=== PATIENT | female | born 1940 | race Caucasian/White ===

== ENCOUNTER → 2023-02-06 13:48 | Outpatient (BNVA) | payer MEDICARE, BC, SELFPAY | PROVIDERS: PCP Family Medicine; Referring Provider Family Medicine; Visit Provider Student in an Organized Health Care Education/Training Program | DX: J45.50 Severe persistent asthma, uncomplicated (principal); Z79.51 Long term (current) use of inhaled steroids; R91.8 Other nonspecific abnormal finding of lung field; J98.4 Other disorders of lung | CPT/HCPCS: 99214 ==

== ENCOUNTER → 2023-08-08 14:19 | Outpatient (BNVA) | payer MEDICARE, BC, SELFPAY | PROVIDERS: PCP Family Medicine; Referring Provider Family Medicine; Visit Provider Student in an Organized Health Care Education/Training Program | DX: R91.8 Other nonspecific abnormal finding of lung field (principal); J45.50 Severe persistent asthma, uncomplicated; J98.4 Other disorders of lung | CPT/HCPCS: 99214 ==

== ENCOUNTER → 2024-02-05 12:42 | Outpatient (BNVA) | payer MEDICARE, BC, SELFPAY | PROVIDERS: PCP Family Medicine; Referring Provider Family Medicine; Visit Provider Physician Assistant Surgical | DX: R91.8 Other nonspecific abnormal finding of lung field (principal); J45.50 Severe persistent asthma, uncomplicated; J98.4 Other disorders of lung | CPT/HCPCS: 99214 ==

== ENCOUNTER → 2024-08-05 14:30 | Outpatient (BNVA) | payer MEDICARE, BC, SELFPAY | PROVIDERS: PCP Family Medicine; Referring Provider Family Medicine; Visit Provider Physician Assistant Surgical | DX: R91.8 Other nonspecific abnormal finding of lung field (principal); J45.50 Severe persistent asthma, uncomplicated; J98.4 Other disorders of lung | CPT/HCPCS: 99214 ==

== ENCOUNTER → 2025-02-02 11:03 | Outpatient (BNVA) | payer MEDICARE, BC, SELFPAY | PROVIDERS: PCP Family Medicine; Referring Provider Family Medicine; Visit Provider Internal Medicine Pulmonary Disease | DX: R91.8 Other nonspecific abnormal finding of lung field (principal); J45.50 Severe persistent asthma, uncomplicated; J44.9 Chronic obstructive pulmonary disease, unspecified; J98.4 Other disorders of lung | CPT/HCPCS: 99215 ==